=== PATIENT | female | born 1935 | race Caucasian/White ===

== ENCOUNTER 2019-12-20 12:09 | Emergency (ER) | payer MEDICARE, BC, SELFPAY ==
[2019-12-20] VITALS (59 sets, daily range): BP systolic 63–141; BP diastolic 38–103; PULSE 71–131; RESP 11–31; TEMP 36.1–36.6; O2SAT 67–100
--- NOTE | 2019-12-20 12:15 | DI.RAD_ITS ---
EXAM: XR PORTABLE CHEST AP POST LINE CLINICAL HISTORY: s/p intubation, confirm ETT TECHNIQUE: COMPARISON: CR,RF BARIUM SWALLOW W PA LAT CXR from 06/07/2012 FINDINGS: Single portable view was obtained. There is an endotracheal tube in good position. The lungs appear clear and well expanded. Cardiac size is within normal limits. No pleural effusion identified on this frontal film. IMPRESSION: ET tube in good position, no focal pathology seen.
--- NOTE | 2019-12-20 12:31 | ED.GENADUL_ITS ---
Discharge Plan Disposition Patient Disposition: [facility] Condition: Critical Discharge Details Chief Complaint: CodeBlue Clinical Impression: Cardiac arrest, Atrial fibrillation, new onset, Pneumonia Primary Care Provider: Diana Lobo ED Provider: Nannette Rizvi Home Meds and New Rx's Prescriptions: No Action betamethasone, augmented 0.05 % cream 1 applic TP BID Qty: 15 RF: 1 tramadol 50 mg tablet 50 mg PO Q8H PRN (Reason: pain) Qty: 21 RF: 3 acetaminophen [Tylenol Arthritis Pain] 650 mg tablet extended release 1,300 mg PO TID PRN RF: 0 turmeric root extract 500 mg capsule 500 mg PO DAILY RF: 0 multivitamin 1 EACH tablet 1 tab PO DAILY RF: 0 calcium carbonate-vitamin D3 [Caltrate with Vitamin D3] 1 EACH tablet 1 tab PO DAILY RF: 0 ibuprofen [Advil] 200 MG tablet 400 mg PO TID PRNRF: 0 trazodone 50 mg tablet 100 mg PO HS PRN Qty: 180 RF: 4 prednisone 20 mg tablet See Rx Instructions PO DAILY Qty: 11 RF: 0 Discharge Data Discharge Date/Time-TO BE ENTERED AT DEPARTURE: 12/20/19 18:07 Medical Decision Making 1430 -- 84-year-old female with a history of breast cancer presents as a cardiac arrest. Found down by a bystander 11:20 AM. Upon EMS arrival initially faint pulses and then pulseless arrest, CPR initiated and intubated in the field with 3 rounds of epi. Upon arrival to the ED intubated, unresponsive. BP hypotensive. Heart rate 120s with A. fib on EKG. Afebrile. No obvious evidence of trauma on exam. EKG notes a rate of 116, atrial fibrillation, no acute ST ischemic changes. Cardizem drip, propofol drip, and fentanyl drip ordered. Labs and imaging reviewed. White blood cell count 10. Initial ABG noted a pH of 7.13, PCO2 of 39. Lactate 10.7. Troponin 0 0.22. Chest x-ray noted ET tube in good position. Patient eventually sent for CT head and cervical spine which was negative for any acute process. There was incidentally noted possibly a left upper lobe infiltrate for which Levaquin was started. Patient has a history of swelling and hives with penicillin. There is a plan for CT chest, abdomen and pelvis with thoracic and lumbar spine however with GFR 24 this was canceled. Case was discussed with [facility] transfer center and patient is accepted for transfer to the MICU. Accepting physician Dr. Estrada. Patient's and son were present in the ED and were able to see her at bedside and are agreeable with plan for transfer to [facility]. Medical Records Medical records reviewed: Yes I reviewed the patient's medical records. Imaging Data Radiologic Study: Radiologist's impression: CT HEAD CERVICAL SPINE WO CLINICAL HISTORY: cardiac arrest, r/o acute cva TECHNIQUE: COMPARISON: No exams were available for comparison FINDINGS: Noncontrast cranial CT was performed. There is moderate generalized cerebral atrophy. There is no evidence of acute intracranial hemorrhage, mass effect, or midline shift. The orbital and temporal bone structures appear intact. Visualized paranasal sinuses and mastoid air cells are clear. No calvarial fracture identified. CT examination of the cervical spine was performed. There is an endotracheal tube in position. There is apparent consolidation involving portions of the left upper lobe, consider infectious process. No gross cervical mass or adenopathy seen. There are degenerative changes of the cervical spine. There is no evidence of acute fracture or dislocation. Please note that the examination is somewhat limited due to patient motion. IMPRESSION: Findings suggesting left upper lobe pneumonia. No acute intracranial abnormality. No acute cervical spine fracture. ET tube in place. XR PORTABLE CHEST AP POST LINE CLINICAL HISTORY: s/p intubation, confirm ETT TECHNIQUE: COMPARISON: CR,RF BARIUM SWALLOW W PA LAT CXR from 06/07/2012 FINDINGS: Single portable view was obtained. There is an endotracheal tube in good position. The lungs appear clear and well expanded. Cardiac size is within normal limits. No pleural effusion identified on this frontal film. IMPRESSION: ET tube in good position, no focal pathology seen. HPI General Mode of arrival: EMS . Date/Time Provider Initiated Documentation: 12/20/19 12:12 . Limitations to Documentation: altered mental status and physical limitation . Information obtained by: EMS . HPI Narrative: Patient is an 84-year-old female with a history of breast cancer who presents as a cardiac arrest. Per EMS, bystanders found patient down approximately around 11:20 AM on a running track. EMS states that she had a faint radial pulse upon their arrival, but shortly after she became pulseless and went into cardiac arrest. She was initially noted to be in asystole and then PEA was given 3 rounds of epi and CPR initiated and they were able to obtain ROSC and she was noted to be in sinus rhythm. Related Data Home Medications Medication Instructions Recorded Confirmed calcium carbonate-vitamin D3 1 tab PO DAILY 09/23/12 12/20/19 [Caltrate 600 + D Tablet] multivitamin 1 tab PO DAILY 09/23/12 12/20/19 ibuprofen [Advil] 400 mg PO TID PRN 04/26/14 12/20/19 acetaminophen 650 mg 1,300 mg PO TID PRN tab 04/04/18 12/20/19 tablet,extended release turmeric root extract 500 mg 500 mg PO DAILY 03/31/19 12/20/19 capsule trazodone 50 mg tablet 100 mg PO HS PRN #180 tab 09/11/19 12/20/19 betamethasone, augmented 0.05 % 1 applic TP BID #15 gm 10/02/19 12/20/19 topical cream tramadol 50 mg tablet 50 mg PO Q8H PRN #21 tab 10/02/19 12/20/19 prednisone 20 mg tablet See Rx Instructions PO DAILY #11 12/12/19 12/20/19 tab Previous Rx's Medication Instructions Recorded trazodone 50 mg tablet 100 mg PO HS PRN #180 tab 09/11/19 betamethasone, augmented 0.05 % 1 applic TP BID #15 gm 10/02/19 topical cream tramadol 50 mg tablet 50 mg PO Q8H PRN #21 tab 10/02/19 prednisone 20 mg tablet See Rx Instructions PO DAILY #11 12/12/19 tab Allergies Allergy/AdvReac Type Severity Reaction Status Date / Time Penicillins Allergy Intermediate swelling, Verified 04/04/19 13:19 hives General Stated Complaint: [facility]Medical MARIA D: 1 Review of Systems All systems reviewed & are unremarkable except as noted in HPI and below PFSH Medical History (Updated 12/20/19 @ 15:25 by Nannette Rizvi DO) Abnormal auditory perception (Resolved 11/23/13) Actinic keratoses (Acute) Acute streptococcal pharyngitis (Inactive 06/27/15) Allergic rhinitis (Chronic) Arthralgia (Chronic 04/26/14) Atrophic vaginitis (Chronic) Candidiasis of mouth (Inactive 06/27/15) Closed compression fracture of L2 lumbar vertebra (Chronic 06/24/17) 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 S/P lumpectomy Nuclear cataract (Resolved) 10/06/12 right eye (optical expressions) s/p Extraction and lens implantation Nuclear cataract (Inactive 10/06/12) Oral thrush (Resolved 06/27/15) Osteoporosis (Chronic) T SCORES -3, -3.4, -2.6 PAC (premature atrial contraction) (Chronic 05/13/15) Poor sleep (Inactive) Postnasal drip (Resolved) 10/25/13 Postnasal drip (Inactive 10/25/13) Rash (Inactive) Sensorineural hearing loss, bilateral (Chronic 11/28/13) wears b/l hearing aids Strep pharyngitis (Resolved 06/27/15) Tinnitus (Chronic 11/23/13) Urinary bladder disorder (Chronic) Surgical History (Updated 10/02/19 @ 13:13 by Diaan Lobo MD, DC) Biopsy of breast (~08/1995) and radiation Colonoscopy - IV Sedation 1998,2008 Extraction of cataract (10/04/12) Dr. Khanna; right eye H/O cataract removal with insertion of prosthetic lens (Resolved) 06/28/12 Dr. Khanna; right eye History of cataract removal with insertion of prosthetic lens (Inactive) S/P breast biopsy (Resolved) and radiation Status post breast biopsy (Inactive) Family History (Updated 04/05/19 @ 13:49 by Preston Garcia) Mother , age 77 Heart disease Myocardial infarction Depressive disorder Father , age 70 Alcohol abuse Colon cancer Brother Crohn's disease Heart disease Lymphoma Paternal Grandfather , age 70 Stroke Pulmonary embolism Maternal Grandmother Stroke Paternal Grandmother , AGE 96 No problems noted. Son Crohn's disease A-fib Hyperlipidemia Son Essential hypertension Maternal Grandmother , age 84 Heart disease Social History (Updated 04/05/19 @ 13:46 by Presotn Garcia) Smoking/Tobacco Use Status: Never Alcohol Intake: current Alcohol Intake frequency: 0-2 drinks per day Alcohol type: wine Drug use: Never Substance use type: prescription drug Caregiver/Support person: No Household members: spouse Housing: house Communication Needs: Hard of Hearing and Corrective Lenses current occupation: TEACHER Pets and animals: No Sexually active: No Do you think of yourself as: straight/heterosexual Current gender identity: female What is your relationship status?: How often do you talk on the phone with friends or family?: twice per week How often do you get together with friends or relatives?: twice per week How often do you attend bahai or moravian services?: 4 or more times per year Do you belong to any clubs or organized social groups?: decline to answer Panel score (0-1 are the most socially isolated patients): 3 What type of physical activity do you participate in: walking and yoga Duration: 30-45 minutes/day Frequency: 5-6 times per week Meli/Sikhism: Yarsani Special meli needs: No Seatbelt use: always Helmet use: No Drive intox or ride w/intox driver service technician: No Do you feel safe in your relationship?: Yes Additional Social history: unable to assess. Exam Const General: patient mechanically ventilated [facility] Head: normal to inspection Ears: external ears normal General nose exam: external nose normal Face and sinus: normal facial exam Mouth: oral mucosae normal Eyes General: appearance normal, both eyes and all related structures Eyelids: eyelids normal Pupils: fixed bilaterally and pinpoint bilaterally Neck Neck: normal visual inspection Lymphatic: no lymphadenopathy noted Chest Chest: normal inspection of the chest Resp Auscultation: clear to auscultation bilaterally Cardio Rate: tachycardic Rhythm: abnormal rhythm irregularly irregular GI Inspection: normal to inspection Palpation: soft, not firm, no guarding, no hepatosplenomegaly, no masses and nontender Auscultation: normal bowel sounds Skin General skin exam: no rashes or lesions noted Neuro General: other (unresponsive) Extrem General: normal to inspection and capillary refill normal Psych Appearance: grossly normal Course Vital Signs Vital signs: Vital Signs Pulse 118 H 12/20/19 12:09 Respiratory Rate 12 12/20/19 12:09 Blood Pressure 85/44 L 12/20/19 12:09 Pulse Oximetry 100 12/20/19 12:09 Temperature Source Tympanic 12/20/19 12:09 Pulse 118 H 12/20/19 12:09 Respiratory Rate 12 12/20/19 12:09 Respiratory Effort Mechanically Ventilated 12/20/19 12:13 Blood Pressure 85/44 L 12/20/19 12:09 Blood Pressure Position Supine 12/20/19 12:09 Pulse Oximetry 100 12/20/19 12:09 Oxygen Delivery Method Ambu-Bag 12/20/19 12:09 Oxygen Flow Rate 15 12/20/19 12:09 End Tidal Co2 43 12/20/19 12:09 Comment 12/20/19 12:09 Lab/Test Results Lab/Test Results: 12/20/19 12:17 Blood Blood Culture - Pending 12/20/19 12:17 Blood Blood Culture - Pending
[2019-12-20] MEDS: Normal Saline 500 ML IV (12:32)
[2019-12-20 12:34] LABS: HCO3 13 mmol/L (22-28); pCO2 39 mmHg (34-47); pO2 435 mmHg (83-108)
[2019-12-20 12:35] LABS: Abs Immature Grans 0.49 k/cumm (0.0-0.09); HCT 31.5 % (36.0-46.0); HGB 9.5 g/dL (12.0-15.5); Mean Corp. HGB Concentration 30.2 g/dL (32.0-36.0); Mean Corpuscular Hemoglobin 25.8 pg (27.0-33.0); Mean Corpuscular Volume 85.6 fL (80-95); Mean Platelet Volume 9.9 fL (8.0-11.0); Platelet Count 138 x1000/uL (130-400); RBC 3.68 m/cumm (4.00-5.20); RBC Distribution Width 16.5 % (11.7-14.6); White Blood Cell Count 10.94 k/cumm (4.4-10.8)
[2019-12-20] MEDS: PROPOFOL 500 MG/50 ML BTL 19.29 MG IVPB (12:35)
[2019-12-20 12:36] LABS: Lactate 10.7 mmol/L (0.6-1.4)
[2019-12-20] MEDS: dilTIAZem 125 MG in Normal Saline 100 ML IV (12:38)
[2019-12-20] MEDS: fentaNYL 100 MCG/2 ML VIAL 50 MCG IVP ×2 (12:40→14:31)
[2019-12-20 12:42] LABS: pH 7.13 (7.35-7.45); sO2 > 99 % (94-98)
--- NOTE | 2019-12-20 12:42 | NUR.NOTE ---
Nursing Note: PT brought to ED by [facility] ([employer] Adjuster: Lenard) PT was found down by a bystander on a running track. EMS responded. Upon arrival PT initial heart rhythm was PEA. EMS initiated CPR. BVM initiated/Supplemental oxygen 15lpm. IV access established bilaterally 18G in both Wrist's. Epi x 3 administered IV en-route. Intubation successful with 7.0 tube, 23 teeth. Upon arrival to ED radial peripheral pulses palpable. BGL 428. Vitals stable, see initial set in triage note. Unknown medical history, medications, and allergies at this time. 12:05 MD Rizvi at bedside/ RT: Jazzy at bedside, RN's Elizabeth/Bro at bedside, Tech's: Sarah/sindhu. EKG a-fib rate of 118bpm, Oxygen saturation 100% on vent, RR 22, Etc02 22, BP 105/62. Propofol drip initiated for sedation. IV fluids initiated for volume replacement. See MAR for meds and dosage instructions.
[2019-12-20 12:53] LABS: ALT 136 U/L (14-59); AST 167 U/L (15-37); Albumin 2.5 g/dL (3.4-5.0); Alkaline Phosphatase 85 U/L (46-116); Anion Gap 19.6 mmol/L (3-11); BUN 20 mg/dL (7-18); Bilirubin, Total 0.4 mg/dL (0.2-1.0); CO2 16.4 mmol/L (21.0-32.0); CREATININE 1.95 mg/dL (0.55-1.02); Calcium 7.5 mg/dL (8.5-10.1); Chloride 105 mmol/L (98-107); Glucose 481 mg/dL (74-106); INR 1.7 (0.9-1.1); Magnesium 2.2 mg/dL (1.8-2.4); Prothrombin Time 16.7 sec (9.3-11.0); Sodium 141 mmol/L (136-145)
[2019-12-20 12:55] LABS: Troponin I 0.22 ng/mL (<0.06)
[2019-12-20 13:28] LABS: Absolute Eosinophil Count 0.22 k/cumm (0.0-0.7); Absolute Lymphocyte Count 2.74 k/cumm (1.2-3.4); Absolute Monocyte Count 0.66 k/cumm (0.11-0.7); Diff Comment Manual Differential
[2019-12-20 13:29] LABS: Anisocytosis 1+; Burr Cells (echinocyte) 2+; Hypochromasia 1+; Microcytosis 1+; Ovalocytes 2+
--- NOTE | 2019-12-20 13:38 | DI.CT_ITS ---
EXAM: CT HEAD CERVICAL SPINE WO CLINICAL HISTORY: cardiac arrest, r/o acute cva TECHNIQUE: COMPARISON: No exams were available for comparison FINDINGS: Noncontrast cranial CT was performed. There is moderate generalized cerebral atrophy. There is no e vidence of acute intracranial hemorrhage, mass effect, or midline shift. The orbital and temporal natali ne structures appear intact. Visualized paranasal sinuses and mastoid air cells are clear. No phillip rial fracture identified. CT examination of the cervical spine was performed. There is an endotracheal tube in position. Ther e is apparent consolidation involving portions of the left upper lobe, consider infectious process. No gross cervical mass or adenopathy seen. There are degenerative changes of the cervical spine. There is no evidence of acute fracture or disl ocation. Please note that the examination is somewhat limited due to patient motion. IMPRESSION: Findings suggesting left upper lobe pneumonia. No acute intracranial abnormality. No acute cervical spine fracture. ET tube in place.
[2019-12-20] MEDS: fentaNYL 1,000 MCG in Normal Saline 80 ML 6.43 MCG IV (14:04)
[2019-12-20 14:35] LABS: Polychromasia Present
[2019-12-20 14:49] LABS: Site Right Radial
[2019-12-20 14:50] LABS: FIO2 100 %
[2019-12-20 14:52] LABS: BE -9.3 mmol/L (-3-3); HCO3 18 mmol/L (22-28); pCO2 41 mmHg (34-47); pH 7.25 (7.35-7.45); pO2 68 mmHg (83-108); sO2 91 % (94-98); tCO2 17 mmol/L (22-29)
[2019-12-20 14:53] LABS: Site Right Radial
[2019-12-20] MEDS: MIDAZOLAM 50 MG in Normal Saline 90 ML IV (14:57)
[2019-12-20] MEDS: levoFLOXacin 750 MG/150 ML BAG 100 MG IVPB (15:00)
[2019-12-20] MEDS: Normal Saline 1,000 ML 1000 ML IV (15:11)
--- NOTE | 2019-12-20 15:54 | NUR.NOTE ---
pts family son aand at the bed side , [facility]
== END 2019-12-20 18:07 | disposition short-term general hospital (02) ==
PROVIDERS: Emergency Provider Physician Assistant; PCP Family Medicine
DX: I46.9 Cardiac arrest, cause unspecified (principal); I48.91 Unspecified atrial fibrillation; J18.9 Pneumonia, unspecified organism
CPT/HCPCS: 36415; 36416; 51702; 71045; 80053; 82805; 82962; 87040; 93005; 96361; 96365; 96366; 96367; 96368; 96374; 96376; 99291; 36600; 70450; 72125; 83605; 83735; 84484; 85025; 85610; 85730; 93010; J1956; J3010; J3490